=== PATIENT | female | born 1990 | race Asian ===

== ENCOUNTER 2021-09-10 01:35 | Emergency (ER) | payer OTHER ==
[~2021-09-10] VITALS: Ht 160 cm; Wt 78.0 kg
[2021-09-10 01:37] VITALS: BP 141/77
--- NOTE | 2021-09-10 03:18 | NUR ---
Dr. Galdamez examining patient.
--- NOTE | 2021-09-10 03:23 | NUR ---
PATIENT AMBULATED TO BED 6
--- NOTE | 2021-09-10 03:33 | NUR ---
31/F BIB C/C VAGINAL BLEEDING X1DAY. PER PATIENT SHE HAD "BROWN BLOOD STAINING ON UNDERWEAR. ADA IS ALSO EXPERIENCING CRAMPING 3/10 ON LOWER ABD. PATIENT DENIES N/V/D/C. DENIES SATURATING PADS. THIS IS THE PATIENTS FIRST . RR EVEN AND UNLABORED. PATIETN PLACED IN GOWN AND BLANKETS. BED LOW AND LOCKED. ALL NEEDS MET. AT BEDSIDE. DENIES PMHX, RX, ALLERGIES.
--- NOTE | 2021-09-10 03:33 | NUR ---
Note undone in EDM - 09/10/21 at 0337 by BARBRA /F BIB C/C VAGINAL BLEEDING X1DAY. PER PATIENT SHE HAD "BROWN BLOOD STAINING ON UNDERWEAR. ADA IS ALSO EXPERIENCING CRAMPING 7/10 ON LOWER ABD. PATIENT DENIES N/V/D/C. DENIES SATURATING PADS. THIS IS THE PATIENTS FIRST . RR EVEN AND UNLABORED. PATIETN PLACED IN GOWN AND BLANKETS. BED LOW AND LOCKED. ALL NEEDS MET. AT BEDSIDE. DENIES PMHX, RX, ALLERGIES.
--- NOTE | 2021-09-10 03:53 | NUR ---
BLOOD COLLECTED AND HANDED TO LAB
--- NOTE | 2021-09-10 03:55 | NUR ---
NOEMI STATED SHE HAD 4/10 ABD CRAMPING. MADE AWARE. ORDERS CARRIED OUT
[2021-09-10] MEDS ORDERED: ACETAMINOPHEN EXTRA STRENGTH 500 MG TAB PO ONE (04:00)
--- NOTE | 2021-09-10 04:15 | NUR ---
ASSISTED PATIENT WITH UNDERWEAR AND PAD. PATIENT STATED THAT BLEEDING HAD INCREASED WITH MOVEMENT. PATIENT AMBULATED TO THE .
--- NOTE | 2021-09-10 04:19 | NUR ---
PATIENT RQ TISSUE AND WIPES. ALL NEEDS MET
[2021-09-10 04:25] LABS: BASOPHILS # (AUTO) 0.1 K/uL (0.00-0.22); BASOPHILS % (AUTO) 0.6 % (0.0-2.0); EOSINOPHILS # (AUTO) 0.1 K/uL (0-0.4); EOSINOPHILS % (AUTO) 0.6 % (0.0-4.0); HEMATOCRIT 44.8 % (36-48); HEMOGLOBIN 14.8 g/dL (12.0-16.0); LYMPHOCYTES # (AUTO) 1.4 K/uL (2.5-16.5); LYMPHOCYTES % (AUTO) 12.6 % (20.5-51.1); MEAN CORPUSCULAR HEMOGLOBIN 29 pg (27-31); MEAN CORPUSCULAR HGB CONC 33 g/dL (33-37); MEAN CORPUSCULAR VOLUME 88.4 fL (80-94); MONOCYTES # (AUTO) 0.5 K/uL (0.8-1.0); MONOCYTES % (AUTO) 4.8 % (1.7-9.3); NEUTROPHILS % (AUTO) 81.4 % (42.2-75.2); PLATELET COUNT (AUTO) 216 K/uL (140-450); RED BLOOD CELL COUNT(AUTO) 5.06 MIL/uL (4.20-5.40); RED CELL DISTRIBUTION WIDTH 12.6 % (11.6-13.7); WHITE BLOOD COUNT (AUTO) 11.1 K/uL (4.8-10.8)
[2021-09-10 04:35] LABS: ALBUMIN 4.3 g/dL (3.4-5.0); ANION GAP 13.2 (8-16); CARBON DIOXIDE 26.9 mmol/L (21-32); CREATININE 0.7 mg/dL (0.6-1.3); POTASSIUM 4.1 mmol/L (3.5-5.1); TOTAL BILIRUBIN 0.3 mg/dL (0.0-1.0)
[2021-09-10 04:41] LABS: APPEARANCE,URINE HAZY (CLEAR); BILIRUBIN,URINE 1+ (NEGATIVE); BLOOD, URINE 3+ (NEGATIVE); COLOR,URINE RED (YELLOW); LEUKOCYTE ESTERASE ,URINE TRACE (NEGATIVE); NITRITE, URINE NEGATIVE (NEGATIVE); UGLUCOSE NEGATIVE (NEGATIVE)
[2021-09-10 04:48] LABS: RBC,URINE 0-5 /HPF (0-5); WBC,URINE 20-60 /HPF (0-5)
--- NOTE | 2021-09-10 04:54 | NUR ---
CALLED TO GET AN UPDATE ON US. NO ETA GIVEN
--- NOTE | 2021-09-10 05:46 | NUR ---
US AT BEDSIDE
--- NOTE | 2021-09-10 07:11 | NUR ---
REPORT GIVEN TO JOHANN HARO. TRANSFER OF CARE.
[2021-09-10] MEDS ORDERED: NITR100C7 PO (07:58)
--- NOTE | 2021-09-10 08:08 | NUR ---
DR CADENA AT BEDSIDE.
[2021-09-10 08:24] VITALS: BP 107/70
--- NOTE | 2021-09-10 08:24 | NUR ---
Patient discharged with v/s stable. Written and verbal after care instructions given and explained. Patient alert, oriented and verbalized understanding of instructions. Ambulatory with steady gait. All questions addressed prior to discharge. ID band removed. Patient advised to follow up with PMD. Rx of NITROFURANTOIN MONOHYD/M-CRYST given. Opportunity to ask questions provided and answered.
== END 2021-09-10 08:24 | disposition home or self-care (01) ==
LOC: MED 01:35
DX: O23.41 Unspecified infection of urinary tract in pregnancy, first trimester (principal); Z3A.10 10 weeks gestation of pregnancy
CPT/HCPCS: 36415; 76817; 80053; 81001; 81025; 84702; 85025; 86900; 86901; 87086; 99285; Q0092